=== PATIENT | female | born 1995 | race African-American/Black ===

== ENCOUNTER 2018-08-29 21:48 | Emergency (ER) | payer BC, OTHER ==
[~2018-08-29] VITALS: Ht 160 cm; Wt 58.1 kg
[2018-08-29 22:09] VITALS: BP 119/60
[2018-08-29] MEDS ORDERED: ONDA4TAB7 PO (22:24)
[2018-08-29] MEDS ORDERED: NAPR-514 PO (22:24)
[2018-08-29] MEDS ORDERED: CYCL10TA2 PO (22:24)
--- NOTE | 2018-08-29 22:24 | PHYS DOC ---
Adult General Chief Complaint Chief Complaint: MENSTRUAL PAIN/CRAMPS HPI HPI Patient is a 23 year old female with history of dysmenorrhea who presents to the ED today complaining of painful menstrual cramps. She states she is currently on her menstrual cycle, she states every 3 months whenever she gets her cycle she goes through this episodes where she gets that from the abdominal cramping, she states today she had severe abdominal cramping, vomited, she states she threw herself on the ground due to the pain, she was at work and they sent to the ED to be evaluated. Denies any chance she is . (LUZ MARIA YODER APRN) Review of Systems Review of Systems Constitutional: Denies fever or chills [] GI: Reports abdominal cramping, nausea, vomiting, : Denies dysuria or hematuria [] Musculoskeletal: Denies back pain or joint pain [] Integument: Denies rash or skin lesions [] Neurologic: Denies headache, focal weakness or sensory changes [] All other systems were reviewed and found to be within normal limits, except as documented in this note. (LUZ MARIA YODER APRN) Current Medications Current Medications Current Medications Medications (Trade) Dose Ordered Sig/Corbin Start Time Stop Time Status Last Admin Dose Admin Acetaminophen (Tylenol) 500 mg 1X ONCE 08/29/18 22:30 08/29/18 22:31 DC 08/29/18 22:30 500 MG Cyclobenzaprine HCl (Flexeril) 10 mg 1X ONCE 08/29/18 22:30 08/29/18 22:31 DC 08/29/18 22:30 10 MG Naproxen (Naprosyn) 500 mg 1X ONCE 08/29/18 23:00 08/29/18 23:00 DC 08/29/18 22:30 500 MG Ondansetron HCl (Zofran Odt) 4 mg 1X ONCE 08/29/18 22:30 08/29/18 22:31 DC 08/29/18 22:30 4 MG (ALYSHA ROPER MD) Allergies Allergies Allergies Coded Allergies Type Severity Reaction Last Updated Verified No Known Drug Allergies 08/29/18 No (ALYSHA ROPER MD) Physical Exam Physical Exam Constitutional: Well developed, well nourished, no acute distress, non-toxic appearance. [] Abdomen: Bowel sounds normal, soft, no tenderness, no masses, no pulsatile masses. [] Skin: Warm, dry, no erythema, no rash. [] Back: No tenderness, no CVA tenderness. [] Extremities: No tenderness, no cyanosis, no clubbing, ROM intact, no edema. [] Neurologic: Alert and oriented X 3, normal motor function, normal sensory function, no focal deficits noted. Cranial nerves II through XII intact Psychologic: Affect normal, judgement normal, mood normal. [] (LUZ MARIA YODER APRN) Current Patient Data Vital Signs Vital Signs Date Time Temp Pulse Resp B/P (MAP) Pulse Ox O2 Delivery O2 Flow Rate FiO2 08/29/18 22:09 97.9 74 16 119/60 (79) 100 Room Air 97.9 (ALYSHA ROPER MD) EKG EKG [] (LUZ MARIA YODER APRN) Radiology/Procedures Radiology/Procedures [] (LUZ MARIA YODER APRN) Course & Med Decision Making Course & Med Decision Making Pertinent Labs and Imaging studies reviewed. (See chart for details) This is a 23-year-old female patient who presents to the ED today with painful menstrual cramps. She states she was at work, due to the pain she threw herself on the ground, she vomited, she was sent to the ED to be evaluated. She stated this typically happens every 3 months. She is in no distress. We gave her TELEPHONE MAINTAINER for follow-up. Given prescription for naproxen and cyclobenzaprine as well as Zofran. (LUZ MARIA YODER APRN) Course & Med Decision Making Staff Physician Addendum: I was working in the ER during the course of this patient's visit. I was available for consultation as needed, but I was not directly involved in the care of this patient. (ALYSHA ROPER MD) Dragon Disclaimer Dragon Disclaimer This electronic medical record was generated, in whole or in part, using a voice recognition dictation system. (LUZ MARIA YODER APRN) Departure Departure Impression: Primary Impression: Dysmenorrhea Disposition: 01 HOME, SELF-CARE Condition: STABLE Referrals: FAUZIA MYLES MD Follow up in one week Patient Instructions: Dysmenorrhea, [id number] Additional Instructions: You were evaluated in the emergency room for painful menses. Please take the prescribed medications as needed for pain. Please establish care with the provided TELEPHONE MAINTAINER and start following up. Scripts Ondansetron Hcl (ZOFRAN) 4 Mg Tablet 1 TAB PO Q6HRS, #20 TAB Prov: LUZ MARIA YODER APRN 08/29/18 Cyclobenzaprine Hcl (CYCLOBENZAPRINE HCL) 10 Mg Tablet 1 TAB PO TID, #30 TAB Prov: LUZ MARIA YODER APRN 08/29/18 Naproxen (NAPROXEN) 500 Mg Tablet 1 TAB PO BID, #20 TAB 0 Refills Prov: LUZ MARIA YODER APRN 08/29/18 LUZ MARIA YODER APRN Aug 29, 2018 22:24 ALYSHA ROPER MD Aug 30, 2018 05:19
[2018-08-29] MEDS ORDERED: ACETAMINOPHEN 500 MG TABLET PO ONE (22:30)
[2018-08-29] MEDS ORDERED: ONDANSETRON ODT 4 MG TAB.RAPDIS. PO ONE (22:30)
[2018-08-29] MEDS ORDERED: CYCLOBENZAPRINE 10 MG TABLET. PO ONE (22:30)
[2018-08-29] MEDS ORDERED: NAPROXEN 500 MG TABLET PO ONE (23:00)
== END 2018-08-29 22:35 | disposition home or self-care (01) ==
LOC: ER 21:48
DX: N94.6 Dysmenorrhea, unspecified (principal); R11.2 Nausea with vomiting, unspecified; R10.9 Unspecified abdominal pain
CPT/HCPCS: 99284; Q0162